=== PATIENT | male | born 1955 | race Caucasian/White ===

== ENCOUNTER 2018-08-25 11:36 | Emergency (ER) | payer BC ==
[~2018-08-25] VITALS: Ht 170.2 cm; Wt 75.0 kg
[2018-08-25] MEDS ORDERED: LISI2.5T47 PO (11:47)
[2018-08-25] MEDS ORDERED: IBUPROFEN 600MG TABLET PO ONE (12:15)
[2018-08-25 14:35] LABS: BASOPHILS % 0.3 % (0.0-2.0); EOSINOPHILS % 0.1 % (0.0-5.0); HEMATOCRIT. 46.4 % (42.0-52.0); HEMOGLOBIN. 15.9 g/dL (14.0-18.0); MEAN CORPUSCULAR HEMOGLOBIN 31.5 pg (28.0-32.0); MEAN CORPUSCULAR VOLUME 91.7 fL (80.0-94.0); MEAN PLATELET VOLUME 8.9 fl (7.4-10.4); MONOCYTES % 6.4 % (2.0-8.0); NEUTROPHILS % 81.2 % (40.0-76.0); PLATELET 230 x1000/uL (130-400); RED BLOOD CELL COUNT 5.06 mill/uL (4.7-6.1); RED CELL DISTRIBUTION WIDTH 12.7 % (11.6-14.6)
[2018-08-25 14:37] LABS: CHLORIDE 104 mEq/L (98-107)
[2018-08-25 14:38] LABS: PROTHROMBIN TIME 10.5 sec (9.1-11.1)
[2018-08-25] MEDS ORDERED: ACETAMINOPHEN 325MG TABLET PO ONE (16:00)
[2018-08-25 16:05] VITALS: BP 129/70
== END 2018-08-25 16:17 | disposition home or self-care (01) ==
LOC: ER 12:41 → CANRESERV 15:19 → ENRESERV 15:19 → CANBEDREQ 15:46 → ER 16:17
DX: S92.421A Displaced fracture of distal phalanx of right great toe, initial encounter for closed fracture (principal); S92.911A Unspecified fracture of right toe(s), initial encounter for closed fracture; S90.31XA Contusion of right foot, initial encounter; I10 Essential (primary) hypertension; W22.8XXA Striking against or struck by other objects, initial encounter; Y93.89 Activity, other specified; Y92.488 Other paved roadways as the place of occurrence of the external cause
CPT/HCPCS: 36415; 73630; 80053; 85025; 85610; 99285; Z7610